=== PATIENT | female | born 1970 | race Caucasian/White ===

== ENCOUNTER 2019-10-11 14:31 | Emergency (ER) | payer OTHER ==
[~2019-10-11] VITALS: Ht 172.7 cm; Wt 68.0 kg
[~2019-10-11 14:31] MED LIST: HYDROXYZINE HCL25 M1 PO; NOHOMEMEDICATIONS; NORCO 5-325 TA1 EACH PO; PREDNISONE 20 M20 MG PO; PREDNISONE50 MG PO; ZPAK PO
[2019-10-11] MEDS ORDERED: PREDNISONE 20 M20 MG PO (15:33)
[2019-10-11] MEDS ORDERED: NORCO 5-325 TA1 EAC1 PO (15:33)
[2019-10-11 16:50] VITALS: BP 122/75
== END 2019-10-11 16:50 | disposition home or self-care (01) ==
LOC: ER 14:31
DX: Z88.5 Allergy status to narcotic agent (principal); Z88.8 Allergy status to other drugs, medicaments and biological substances; M06.9 Rheumatoid arthritis, unspecified

== ENCOUNTER → 2020-10-08 | Outpatient (CLI) | payer OTHER ==
[~2020-10-08] MED LIST changes: +NORCO 5-325 TA1 EAC1 PO
== END ==
LOC: LAB 10:42
PROVIDERS: ATTEND Anesthesiology
DX: Z01.812 Encounter for preprocedural laboratory examination (principal); Z20.822 Contact with and (suspected) exposure to COVID-19